=== PATIENT | female | born 1945 | race Caucasian/White ===

== ENCOUNTER 2022-01-16 16:36 | Inpatient (IN) | payer MEDICARE, MEDICAID ==
[~2022-01-16] VITALS: Ht 154.9 cm; Wt 68.1 kg
[2022-01-16] MEDS ORDERED: ACETAMINOPHEN 325MG TABLET PO STA (17:23)
[2022-01-16] MEDS ORDERED: SODIUM CHLORIDE 0.9% 1000ML BAG (SEPSIS BOLUS) IV ONE (17:30)
[2022-01-16] MEDS ORDERED: AZITHROMYCIN 500MG/250ML 250 ML IV ONE (17:30)
[2022-01-16] MEDS ORDERED: CEFTRIAXONE 1 G PREMIX 50 ML IV ONE (17:30)
[2022-01-16 17:59] LABS: BG BASE EXCESS -4.3 mmol/L (-2.0-2.0); BG CARBOXYHEMOGLOBIN 0.9 % (0.5-1.5); BG FRACTION INSPIRED OXYGEN 36; BG HCO3 ACT 19.1 mmol/L (22.0-26.0); BG METHEMOGLOBIN 0.4 % (0.0-1.5); BG OXYHEMOGLOBIN 96.7 % (94.0-97.0); BG PCO2 28.8 mmHg (35.0-45.0); BG PH 7.439 (7.350-7.450); BG PO2 110.4 mmHg (75.0-100.0); BG SAMPLE SITE RIGHT RADIAL; BG TOTAL HEMOGLOBIN 8.8 g/dL (12.0-18.0); BG VENT MODE NASAL CANNULA
[2022-01-16 18:02] LABS: HEMOGLOBIN. 9.5 g/dL (12.0-16.0); MEAN CORPUSCULAR VOLUME 85.1 fL (81.0-99.0); PLATELET 118 x1000/uL (130-400); RED BLOOD CELL COUNT 3.29 mill/uL (4.2-5.4); RED CELL DISTRIBUTION WIDTH 19.6 % (11.6-14.6)
[2022-01-16 18:04] LABS: CLARITY URINE CLEAR (CLEAR); COLOR URINE YELLOW (YELLOW); KETONES URINE NEGATIVE (NEGATIVE); LEUKOCYTE ESTERASE URINE 1+ (NEGATIVE); NITRITE URINE NEGATIVE (NEGATIVE); OCCULT BLOOD URINE NEGATIVE (NEGATIVE); PH URINE 6.5 (4.5-8.0); PROTEIN URINE 1+ (NEGATIVE); SPECIFIC GRAVITY URINE 1.014 (1.005-1.030)
[2022-01-16 18:11] LABS: CHLORIDE 89 mEq/L (98-107)
[2022-01-16] MEDS ORDERED: ACETAMINOPHEN 650MG SUPP PR ONE (18:15)
[2022-01-16 18:17] LABS: INR 1.1; PROTHROMBIN TIME 12.2 sec (9.6-11.0)
[2022-01-16 18:23] LABS: *AMPHETAMINES SCREEN URINE NEGATIVE (NEGATIVE); *BARBITURATES SCREEN URINE NEGATIVE (NEGATIVE); *BENZODIAZEPINES SCREEN URINE NEGATIVE (NEGATIVE); *COCAINE SCREEN URINE NEGATIVE (NEGATIVE); CANNABINOID URINE SCREEN NEGATIVE (NEGATIVE); METHADONE URINE SCREEN NEGATIVE (NEGATIVE); OPIATES URINE SCREEN NEGATIVE (NEGATIVE); PHENCYCLIDINE URINE SCREEN NEGATIVE (NEGATIVE)
[2022-01-16 18:24] LABS: ETHANOL BLOOD < 10 mg/dL
[2022-01-16] MEDS ORDERED: DEXTROSE 50% WATER 50ML SYRINGE IV ONE ×2 (19:00→20:43)
[2022-01-16] MEDS ORDERED: INSULIN REGULAR (HUMULIN R) 300UNITS/3ML VIAL IV ONE (19:00)
[2022-01-16] MEDS ORDERED: CALCIUM CHLORIDE 1,000 MG in DEXT 5% WATER 100 ML IV ONE (19:00)
[2022-01-16 19:12] LABS: PLATELET ESTIMATE DECREASED
[2022-01-16 19:19] LABS: CREATINE KINASE 137 IU/L (26-192)
[2022-01-16] MEDS: ALBUTEROL (0.083%) 2.5MG/3ML NEB HHN SCH ×3 (20:18→21:18)
[2022-01-16] MEDS ORDERED: HYDROCORTISONE SOD SUCCINATE 1MG/ML 1ML INJ SYR(NEO) IV ONE (20:45)
[2022-01-16] MEDS ORDERED: HYDROCORTISONE SOD SUCCINATE 100 MG/2 ML VIAL IV NR (21:00)
[2022-01-16] MEDS ORDERED: NOREPINEPHRINE 8MG/250ML PMX 250 ML IV PRN (21:45)
[2022-01-16] MEDS ORDERED: NOREPINEPHRINE 8 MG in DEXT 5% WATER 242 ML IV PRN (21:45)
[2022-01-16] MEDS ORDERED: CLONIDINE 0.1MG TABLET PO PRN (22:00)
[2022-01-16] MEDS ORDERED: GUAIFENESIN 200MG/10ML SUGAR FREE UDC PO PRN (22:00)
[2022-01-16] MEDS ORDERED: ONDANSETRON HCL 4MG/2ML INJ IV PRN (22:00)
[2022-01-16] MEDS ORDERED: ZOLPIDEM TARTRATE 5MG TABLET PO PRN (22:00)
[2022-01-16] MEDS ORDERED: DOCUSATE SODIUM 100MG CAPSULE PO PRN (22:00)
[2022-01-16] MEDS ORDERED: IPRATROPIUM/ALBUTEROL 0.5-3(2.5)MG/3ML NEB NEB PRN (22:00)
[2022-01-16] MEDS ORDERED: ACETAMINOPHEN 325MG TABLET PO PRN ×2 (22:00)
[2022-01-16] MEDS ORDERED: MAGNESIUM/ALUMINUM HYDROXIDE/SIMETHICONE 30ML UDC PO PRN (22:00)
[2022-01-16] MEDS ORDERED: NITROGLYCERIN 0.4MG TABLET SL SL PRN (22:00)
[2022-01-16] MEDS ORDERED: KETOROLAC 15MG/ML VIAL IV PRN (22:21)
[2022-01-16 22:40] LABS: CREATINE KINASE MB FRACTION 2.1 ng/mL (0.5-3.6)
[2022-01-16] MEDS: SODIUM CHLORIDE 0.9% 1,000 ML IV SCH (22:55)
[2022-01-16 23:00] LABS: T4 FREE 1.09 ng/dL (0.76-1.46)
[2022-01-16 23:30] LABS: VITAMIN B12 SERUM 842 pg/mL (211-911)
[2022-01-17] VITALS (53 sets, daily range): BP systolic 89–117; BP diastolic 46–68
[2022-01-17 01:40] LABS: FOLIC ACID (FOLATE) SERUM > 20.00 ng/mL (>5.38)
[2022-01-17 06:32] LABS: HEMOGLOBIN. 7.3 g/dL (12.0-16.0); MEAN CORPUSCULAR VOLUME 86.8 fL (81.0-99.0); MEAN PLATELET VOLUME 8.4 fl (7.4-10.4); PLATELET 84 x1000/uL (130-400); RED BLOOD CELL COUNT 2.53 mill/uL (4.2-5.4); RED CELL DISTRIBUTION WIDTH 19.6 % (11.6-14.6)
[2022-01-17 07:02] LABS: CHLORIDE 98 mEq/L (98-107)
[2022-01-17 07:34] LABS: CREATINE KINASE 279 IU/L (26-192); CREATINE KINASE MB FRACTION 4.6 ng/mL (0.5-3.6); PHOSPHORUS 4.3 mg/dL (2.5-4.9)
[2022-01-17 08:16] LABS: PLATELET ESTIMATE DECREASED
[2022-01-17] MEDS ORDERED: LEVOFLOXACIN 750MG PREMIX 150 ML IV SCH ×2 (09:00→12:00)
[2022-01-17] MEDS: ASPIRIN 325MG EC TABLET PO SCH (09:00)
[2022-01-17] MEDS: ENOXAPARIN 40MG/0.4ML SYR SUBCUT SCH (09:00)
[2022-01-17 10:41] LABS: SODIUM URINE RANDOM 57 mEq/L
[2022-01-17] MEDS: ZINC SULFATE 220 MG ( 50 ) CAPSULE PO SCH (10:51)
[2022-01-17] MEDS: FAMOTIDINE 20MG TABLET PO SCH ×2 (10:51→21:36)
[2022-01-17] MEDS: ASCORBIC ACID 500 MG TABLET PO SCH ×2 (10:51→21:37)
[2022-01-17] MEDS ORDERED: INFLUENZA VACCINE 05/PF 0.5 ML SYRINGE IM ONE (13:00)
[2022-01-17] MEDS ORDERED: PNEUMOCOCCAL 23-VAL P-SAC VAC 0.5 ML IM ONE (13:00)
[2022-01-17] MEDS: SODIUM CHLORIDE 0.9% 1,000 ML IV SCH (17:48)
[2022-01-18] VITALS (43 sets, daily range): BP systolic 79–121; BP diastolic 43–68
[2022-01-18] MEDS: ASPIRIN 325MG EC TABLET PO SCH (08:02)
[2022-01-18] MEDS: ENOXAPARIN 40MG/0.4ML SYR SUBCUT SCH (08:02)
[2022-01-18] MEDS: ZINC SULFATE 220 MG ( 50 ) CAPSULE PO SCH (08:02)
[2022-01-18] MEDS: ASCORBIC ACID 500 MG TABLET PO SCH ×2 (08:02→20:17)
[2022-01-18] MEDS: FAMOTIDINE 20MG TABLET PO SCH ×2 (08:02→20:17)
[2022-01-18] MEDS: MEROPENEM 1,000 MG in SODIUM CHLORIDE 0.9% 100 ML IV SCH (12:59)
[2022-01-18] MEDS ORDERED: VANCOMYCIN 1500MG in DEXTROSE 5% WATER 250ML IV NR (13:00)
[2022-01-18] MEDS: SODIUM CHLORIDE 0.9% 1,000 ML IV SCH ×2 (14:01→20:17)
[2022-01-19] VITALS (11 sets, daily range): BP systolic 96–121; BP diastolic 50–63
[2022-01-19] MEDS: MEROPENEM 1,000 MG in SODIUM CHLORIDE 0.9% 100 ML IV SCH ×2 (01:20→14:43)
[2022-01-19 08:03] LABS: MEAN CORPUSCULAR HEMOGLOBIN 28.8 pg (28.0-32.0); MEAN CORPUSCULAR VOLUME 87.4 fL (81.0-99.0); MEAN PLATELET VOLUME 8.7 fl (7.4-10.4); PLATELET 91 x1000/uL (130-400); RED CELL DISTRIBUTION WIDTH 20.1 % (11.6-14.6)
[2022-01-19 08:24] LABS: HEMOGLOBIN. 6.6 g/dL (12.0-16.0)
[2022-01-19 08:25] LABS: HEMATOCRIT. 20.1 % (36.0-48.0)
[2022-01-19] MEDS: ASPIRIN 325MG EC TABLET PO SCH (08:25)
[2022-01-19] MEDS: ZINC SULFATE 220 MG ( 50 ) CAPSULE PO SCH (08:25)
[2022-01-19] MEDS: FAMOTIDINE 20MG TABLET PO SCH ×2 (08:25→23:38)
[2022-01-19] MEDS: ASCORBIC ACID 500 MG TABLET PO SCH ×2 (08:25→23:38)
[2022-01-19] MEDS: ENOXAPARIN 40MG/0.4ML SYR SUBCUT SCH (09:00)
[2022-01-19] MEDS ORDERED: LEVOFLOXACIN 750MG PREMIX 150 ML IV SCH (11:00)
[2022-01-19] MEDS: VANCOMYCIN 1G PREMIX 200 ML IV SCH (14:44)
[2022-01-19 14:48] LABS: HEPATITIS B SURFACE ANTIGEN NEGATIVE
[2022-01-19 22:41] LABS: PLATELET ESTIMATE DECREASED
[2022-01-20] VITALS: BP 107/58
[2022-01-20] MEDS: SODIUM CHLORIDE 0.9% 1,000 ML IV SCH ×2 (02:04→22:10)
[2022-01-20] MEDS: MEROPENEM 1,000 MG in SODIUM CHLORIDE 0.9% 100 ML IV SCH ×2 (02:04→13:56)
[2022-01-20 03:42] LABS: CHLORIDE 102 mEq/L (98-107)
[2022-01-20 04:00] VITALS: BP 90/48
[2022-01-20 08:19] VITALS: BP 116/70
[2022-01-20] MEDS: FAMOTIDINE 20MG TABLET PO SCH ×2 (09:50→22:10)
[2022-01-20] MEDS: ZINC SULFATE 220 MG ( 50 ) CAPSULE PO SCH (09:50)
[2022-01-20] MEDS: ASCORBIC ACID 500 MG TABLET PO SCH ×2 (09:50→22:09)
[2022-01-20] MEDS: ASPIRIN 325MG EC TABLET PO SCH (09:50)
[2022-01-20 10:11] LABS: HEMATOCRIT 25.6 % (36.0-48.0); HEMOGLOBIN 8.8 g/dL (12.0-16.0)
[2022-01-20] MEDS ORDERED: LACTULOSE 20G/30ML UDC PO NR (11:45)
[2022-01-20 16:25] LABS: CHLORIDE 103 mEq/L (98-107)
[2022-01-20] MEDS: VANCOMYCIN 1G PREMIX 200 ML IV SCH (17:29)
[2022-01-20 20:00] VITALS: BP 109/56
[2022-01-20] MEDS: LEVOFLOXACIN 250MG PREMIX 50 ML IV SCH (22:09)
[2022-01-21] VITALS: BP 118/67
[2022-01-21 04:00] VITALS: BP 108/53
[2022-01-21] MEDS: OMEPRAZOLE 20MG CAPSULE EXTENDED RELEASE PO SCH ×2 (06:34→20:36)
[2022-01-21 07:34] LABS: MEAN CORPUSCULAR HEMOGLOBIN 29.1 pg (28.0-32.0); MEAN PLATELET VOLUME 8.3 fl (7.4-10.4)
[2022-01-21 07:42] LABS: HEMATOCRIT. 26.6 % (36.0-48.0); HEMOGLOBIN. 9.1 g/dL (12.0-16.0); MEAN CORPUSCULAR VOLUME 84.8 fL (81.0-99.0); PLATELET 88 x1000/uL (130-400); RED BLOOD CELL COUNT 3.14 mill/uL (4.2-5.4); RED CELL DISTRIBUTION WIDTH 19.7 % (11.6-14.6)
[2022-01-21 08:00] VITALS: BP 121/77
[2022-01-21] MEDS: ASCORBIC ACID 500 MG TABLET PO SCH ×2 (10:49→20:35)
[2022-01-21] MEDS: ZINC SULFATE 220 MG ( 50 ) CAPSULE PO SCH (10:49)
[2022-01-21] MEDS: ASPIRIN 325MG EC TABLET PO SCH (10:50)
[2022-01-21 11:38] LABS: CHLORIDE 101 mEq/L (98-107)
[2022-01-21 11:46] LABS: PHOSPHORUS 2.4 mg/dL (2.5-4.9)
[2022-01-21 12:00] VITALS: BP 105/46
[2022-01-21 16:00] VITALS: BP 109/49
[2022-01-21 20:00] VITALS: BP 111/60
[2022-01-21] MEDS: LEVOFLOXACIN 250MG PREMIX 50 ML IV SCH (20:35)
[2022-01-21] MEDS: SODIUM CHLORIDE 0.9% 1,000 ML IV SCH (20:35)
[2022-01-21 22:15] LABS: FOLIC ACID (FOLATE) SERUM 17.4 ng/mL (>5.38)
[2022-01-22] VITALS: BP 129/68
[2022-01-22 04:00] VITALS: BP 134/68
[2022-01-22] MEDS: OMEPRAZOLE 20MG CAPSULE EXTENDED RELEASE PO SCH ×2 (05:44→21:09)
[2022-01-22 08:00] VITALS: BP 115/56
[2022-01-22] MEDS: ASCORBIC ACID 500 MG TABLET PO SCH ×2 (08:24→21:09)
[2022-01-22] MEDS: ZINC SULFATE 220 MG ( 50 ) CAPSULE PO SCH (08:24)
[2022-01-22] MEDS: ASPIRIN 325MG EC TABLET PO SCH (08:24)
[2022-01-22 10:34] LABS: PLATELET ESTIMATE DECREASED
[2022-01-22 12:00] VITALS: BP 110/53
[2022-01-22 16:00] VITALS: BP 108/56
[2022-01-22] MEDS: SODIUM CHLORIDE 0.9% 1,000 ML IV SCH (17:44)
[2022-01-22 20:00] VITALS: BP 101/53
[2022-01-22] MEDS: LEVOFLOXACIN 250MG PREMIX 50 ML IV SCH (21:09)
[2022-01-23] VITALS: BP 106/57
[2022-01-23 04:00] VITALS: BP 101/54
[2022-01-23] MEDS: OMEPRAZOLE 20MG CAPSULE EXTENDED RELEASE PO SCH (05:55)
[2022-01-23 06:30] LABS: HEMATOCRIT. 26.1 % (36.0-48.0); HEMOGLOBIN. 9.1 g/dL (12.0-16.0); MEAN CORPUSCULAR VOLUME 83.7 fL (81.0-99.0); MEAN PLATELET VOLUME 8.5 fl (7.4-10.4); PLATELET 73 x1000/uL (130-400); RED BLOOD CELL COUNT 3.12 mill/uL (4.2-5.4); RED CELL DISTRIBUTION WIDTH 19.9 % (11.6-14.6)
[2022-01-23 08:00] VITALS: BP 102/51
[2022-01-23] MEDS: ZINC SULFATE 220 MG ( 50 ) CAPSULE PO SCH (08:47)
[2022-01-23] MEDS: ASCORBIC ACID 500 MG TABLET PO SCH (08:47)
[2022-01-23] MEDS: ASPIRIN 325MG EC TABLET PO SCH (08:47)
[2022-01-23 12:00] VITALS: BP 136/85
[2022-01-23 14:10] LABS: PLATELET ESTIMATE DECREASED
[2022-01-23] MEDS: SODIUM CHLORIDE 0.9% 1,000 ML IV SCH (14:17)
[2022-01-23 15:36] VITALS: BP 127/89
[2022-01-23] MEDS ORDERED: MEMANTINE HCL 10MG TABLET PO SCH (21:00)
== END 2022-01-23 18:20 | disposition home health service (06) | DRG 871 ==
LOC: EDBD 16:36 → ER 16:36 → EDBEDREQTM 19:18 → EDBEDREQSVC 19:18 → MICUNO 21:30 → EDBEDREQ 21:41 → EDBEDREQTM 21:41 → EDBEDREQSVC 21:41 → SUPCPDRO 21:54 → 7EST 01-18 19:03
PROVIDERS: ADMIT Internal Medicine; ATTEND Internal Medicine
PROC: 30233N1 Transfusion of Nonautologous Red Blood Cells into Peripheral Vein, Percutaneous Approach (ICD-10-PCS; principal; 2022-01-19)
DX: A41.9 Sepsis, unspecified organism (principal); E43 Unspecified severe protein-calorie malnutrition; G93.41 Metabolic encephalopathy; J96.01 Acute respiratory failure with hypoxia; R65.21 Severe sepsis with septic shock; R57.1 Hypovolemic shock; E87.1 Hypo-osmolality and hyponatremia; J98.11 Atelectasis; C79.70 Secondary malignant neoplasm of unspecified adrenal gland; E27.2 Addisonian crisis; D69.6 Thrombocytopenia, unspecified; D64.9 Anemia, unspecified; Z20.822 Contact with and (suspected) exposure to COVID-19; E87.5 Hyperkalemia; R73.9 Hyperglycemia, unspecified; R74.01 Elevation of levels of liver transaminase levels; I10 Essential (primary) hypertension; R16.1 Splenomegaly, not elsewhere classified; R13.10 Dysphagia, unspecified; E66.9 Obesity, unspecified; R26.9 Unspecified abnormalities of gait and mobility; F03.90 Unspecified dementia, unspecified severity, without behavioral disturbance, psychotic disturbance, mood disturbance, and anxiety; E78.1 Pure hyperglyceridemia; R32 Unspecified urinary incontinence; Z83.3 Family history of diabetes mellitus; Z68.28 Body mass index [BMI] 28.0-28.9, adult; Z88.0 Allergy status to penicillin; Z74.01 Bed confinement status
CPT/HCPCS: 36415; 36600; 71045; 71275; 80048; 80053; 80061; 80305; 80320; 81003; 82024; 82140; 82270; 82375; 82378; 82533; 82550; 82553; 82607; 82728; 82746; 82805; 82962; 83010; 83036; 83540; 83550; 83605; 83615; 83735; 83880; 83930; 83935; 84100; 84145; 84300; 84439; 84443; 84484; 85014; 85018; 85025; 85044; 85384; 86705; 86709; 86803; 86850; 86880; 86900; 86920; 87340; 87426; 87449; 87804; 90686; 90732; 92523; 92610; 93005; 93970; 97162; 97166; 97530; 99291; C1893; C9803; J0456; J0696; J1720; J1956; J2185; J3370; J3490; J7030; J7050; J7060; P9016; G0480